=== PATIENT | female | born 1975 ===

== ENCOUNTER 2021-01-23 15:49 | Emergency (ER) | payer OTHER ==
[~2021-01-23] VITALS: Ht 157.5 cm; Wt 62.0 kg
[2021-01-23 17:11] LABS: HEMATOCRIT 34.1 % (37.0-47.0); HEMOGLOBIN 10.1 g/dl (12.0-16.0); MEAN CELL VOLUME 93.4 fL CALC (80.0-100.0); MEAN CORPUSCULAR HGB 27.7 pG CALC (26.0-32.0); MEAN CORPUSCULAR HGB CONC 29.6 g/dL CAL (32.0-36.0); NEUT# 2.94 thou/uL (2.00-7.15); RED BLOOD COUNT 3.65 mill/uL (4.20-5.60); RED CELL DISTRI WIDTH 13.8 % (11.5-15.5)
[2021-01-23 17:23] LABS: ALBUMIN 4.3 g/dL (3.2-5.0); BILIRUBIN, TOTAL 0.8 mg/dL (0.0-1.4); CREATININE 3.2 mg/dL (0.5-1.0); POTASSIUM 3.4 mmol/l (3.5-5.1)
[2021-01-23 18:36] VITALS: BP 142/66
[2021-01-24] MEDS ORDERED: HYDRALAZINE (10:44)
[2021-01-24] MEDS ORDERED: PRILOSEC (10:45)
[2021-01-24] MEDS ORDERED: CALCITROL (10:45)
[2021-01-24] MEDS ORDERED: THYROID (10:45)
== END 2021-01-23 18:55 | disposition home or self-care (01) | DRG 314 ==
LOC: ED 15:49
PROVIDERS: Family Medicine
DX: T82.7XXA Infection and inflammatory reaction due to other cardiac and vascular devices, implants and grafts, initial encounter (principal); N18.6 End stage renal disease; I12.0 Hypertensive chronic kidney disease with stage 5 chronic kidney disease or end stage renal disease; Y83.8 Other surgical procedures as the cause of abnormal reaction of the patient, or of later complication, without mention of misadventure at the time of the procedure; Z99.2 Dependence on renal dialysis

== ENCOUNTER 2022-03-27 15:22 | Emergency (ER) | payer OTHER ==
[2022-03-27] VITALS (18 sets, daily range): BP systolic 106–146; BP diastolic 57–72
[~2022-03-27] VITALS: Ht 157.5 cm; Wt 73.0 kg
[~2022-03-27 15:22] MED LIST: CALCITROL; HYDRALAZINE; PRILOSEC; THYROID
[2022-03-27 16:06] LABS: BASO% 0.5 % (0-3); EOS% 0.8 % (0-8); HEMATOCRIT 31.1 % (37.0-47.0); HEMOGLOBIN 9.8 g/dl (12.0-16.0); IMMATURE GRANULOCYTES 0.2 % (0.0-5.0); LYMPH% 16.4 % (15-41); MEAN CELL VOLUME 92.3 fL CALC (80.0-100.0); MEAN CORPUSCULAR HGB 29.1 pG CALC (26.0-32.0); MEAN CORPUSCULAR HGB CONC 31.5 g/dL CAL (32.0-36.0); MONO% 10.9 % (2-13); NEUT# 4.3 thou/uL (2.00-7.15); NEUT% 71.2 % (42-76); RED BLOOD COUNT 3.37 mill/uL (4.20-5.60); RED CELL DISTRI WIDTH 11.7 % (11.5-15.5)
[2022-03-27 16:26] LABS: ALBUMIN 4.4 g/dL (3.2-5.0); BILIRUBIN, TOTAL 0.8 mg/dL (0.0-1.4); CREATININE 3.9 mg/dL (0.5-1.0); POTASSIUM 3.4 mmol/l (3.5-5.1)
[2022-03-27 17:08] LABS: URINE BILIRUBIN - DIPSTICK NEGATIVE (NEGATIVE); URINE BLOOD DIPSTICK SMALL (NEGATIVE); URINE COLOR YELLOW; URINE GLUCOSE - DIPSTICK 100 mg/dL (NEGATIVE); URINE KETONE NEGATIVE (NEGATIVE); URINE LEUK ESTERASE NEGATIVE (NEGATIVE); URINE PROTEIN - DIPSTICK 30 mg/dL (NEG-TRACE); URINE SPECIFIC GRAVITY 1.015; URINE UROBILINOGEN - DIPSTICK 0.2 E.U./dL (0.2)
[2022-03-27 17:10] LABS: URINE EPITHELIAL CELLS FEW EPI/hpf (0-FEW); URINE NITRITE - DIPSTICK NEGATIVE (Negative); URINE RBC 0-2 RBC/hpf (0-5)
[2022-03-27] MEDS ORDERED: TRAMADOL HCL50 MG PO (19:25)
== END 2022-03-27 20:00 | disposition home or self-care (01) | DRG 699 ==
LOC: ED 15:22
PROVIDERS: Family Medicine
DX: Q61.2 Polycystic kidney, adult type (principal); I12.0 Hypertensive chronic kidney disease with stage 5 chronic kidney disease or end stage renal disease; N18.6 End stage renal disease; Z99.2 Dependence on renal dialysis